=== PATIENT | male | born 1990 | race Caucasian/White ===

== ENCOUNTER 2016-10-17 14:37 | Emergency (ER) | payer BC ==
[~2016-10-17] VITALS: Wt 78.5 kg
[2016-10-17] MEDS ORDERED: HYDR-906 PO (15:21)
[2016-10-17] MEDS ORDERED: BEN25 PO (15:21)
[2016-10-17] MEDS ORDERED: NAPR-260 PO (15:22)
[2016-10-17] MEDS ORDERED: HYDROCODONE/APAP (5/325) TAB PO ONE (15:30)
--- NOTE | 2016-10-17 15:30 | ERD ---
ER Documentation Chief Complaint Date/Time DATE: 10/17/16 TIME: 15:27 Chief Complaint right foot insect bite HPI Is a 26-year-old male who presents to the emergency department today complaining of pain from a spider bite. Patient states that on Sunday he noticed some itching on his foot. States he went to an urgent care yesterday and was given doxycycline. States his been taking Tylenol for the pain. States the pain is in his foot and he has some healing on the bottom of his foot and pain in his ankle. Denies any fevers or chills. ROS All systems reviewed and are negative except as per history of present illness. Medications Home Meds Active Scripts Naproxen* (Naprosyn*) 500 Mg Tablet, 500 MG PO BID Y for PAIN AND/OR INFLAMMATION, #30 TAB Prov:ADAM FITZPATRIKC PA-C 10/17/16 Hydrocodone/Acetaminophen (Camden 5-325 Tablet) 1 Each Tablet, 1 TAB PO Q6H Y for PAIN, #12 TAB Prov:ADAM FITZPATRICK PA-C 10/17/16 Diphenhydramine Hcl* (Benadryl*) 25 Mg Cap, 25 MG PO Q6, #30 CAP Prov:ADAM FITZPATRICK PA-C 10/17/16 Allergies Allergies: Coded Allergies: Penicillins (Verified Adverse Reaction, Unknown, no witness reaction, but has been told since childhood, 10/17/16) PMhx/Soc Medical and Surgical Hx: pt denies Medical Hx, pt denies Surgical Hx Hx Alcohol Use: Yes (socially) Hx Substance Use: Yes (marijuana) Hx Tobacco Use: Yes (socially, infrequent) Smoking Status: Light tobacco smoker Physical Exam Vitals Vital Signs Date Time Temp Pulse Resp B/P Pulse Ox O2 Delivery O2 Flow Rate FiO2 10/17/16 14:47 99.3 90 18 148/89 99 Physical Exam Const: Nontoxic-appearing, no acute distress Head: Atraumatic Eyes: Normal Conjunctiva ENT: Normal External Ears, Nose and Mouth. Neck: Full range of motion..~ No meningismus. Resp: Clear to auscultation bilaterally Cardio: Regular rate and rhythm, no murmurs Abd: Soft, non tender, non distended. Normal bowel sounds Skin: Right foot with evidence of insect bite and localized erythema. Back: No midline or flank tenderness Ext: Right foot with evidence of insect bite and localized erythema.Full active range of motion ankle Neur: Awake and alert Psych: Normal Mood and Affect Results 24 hrs Current Medications Medications (Trade) Dose Ordered Sig/Luis Enrique Route PRN Reason Start Time Stop Time Status Last Admin Dose Admin Acetaminophen/ Hydrocodone Bitart (Camden (5/325)) 1 tab ONCE ONCE PO 10/17/16 15:30 10/17/16 15:31 Procedures/MDM This a 26-year-old male who presents emergency department today complaining of right foot pain after an insect bite. Patient states that the bite was initially itching. States he thinks it was a spider bite. Patient did go to an urgent care yesterday and was placed on doxycycline. He is only taken 3 pills thus far. Patient states he has increased pain on the bottom of his foot and into his ankle. On physical exam there is evidence of a infected insect bite with localized erythema and cellulitis. Patient is taking doxycycline he is only taken 3 pills and I do not feel that he has failed outpatient treatment at this time. I do not feel that he requires a change of medication at this time. Patient is afebrile and otherwise well-appearing. He does have full active range of motion of his ankle and I have low suspicion for septic joint or gout. Patient was given Camden here in the emergency department. He was given a prescription for Benadryl, short course of Camden and Naprosyn for home. He was instructed to continue taking his doxycycline and return for any worsening of symptoms, increased pain or increased redness or swelling or fevers. Patient understood At this time the patient is stable for discharge and outpatient management. Patient should follow up with their PCP in the next 1-2 days. They may return to the emergency department sooner for any persistent or worsening of symptoms. Patient understood and agreed with the plan. Departure Diagnosis: Primary Impression: Infected bite wound Condition: Fair Patient Instructions: Insect Sting/Bite, Infected Referrals: your PCP Additional Instructions: Call your primary care doctor TOMORROW for an appointment during the next 1-2 days.See the doctor sooner or return here if your condition worsens before your appointment time. Take Camden for severe pain otherwise take Naprosyn or Tylenol or Motrin Apply ice to help decrease painful area Continue taking antibiotics as prescribed Take Benadryl for itching Return for any worsening of symptoms, fevers, increased pain, increased area of redness ADAM FITZPATRICK PA-C Oct 17, 2016 15:30
== END 2016-10-17 15:38 | disposition home or self-care (01) ==
LOC: FTE 14:37
DX: S90.861A Insect bite (nonvenomous), right foot, initial encounter (principal); F17.210 Nicotine dependence, cigarettes, uncomplicated; W57.XXXA Bitten or stung by nonvenomous insect and other nonvenomous arthropods, initial encounter; Y92.9 Unspecified place or not applicable
CPT/HCPCS: 99283